=== PATIENT | female | born 1990 | race Caucasian/White ===

== ENCOUNTER 2017-08-04 13:00 | Emergency (ER) | payer MEDICAID ==
[~2017-08-04] VITALS: Ht 177.8 cm; Wt 62.6 kg
[2017-08-04] MEDS ORDERED: LIDOCAINE-MPF 1%, 5ML INFIL ONE (13:30)
[2017-08-04 14:08] VITALS: BP 125/86
== END 2017-08-04 15:13 | disposition home or self-care (01) ==
LOC: ED 13:57
DX: L02.414 Cutaneous abscess of left upper limb (principal); F11.10 Opioid abuse, uncomplicated
CPT/HCPCS: 10060; 99283

== ENCOUNTER 2017-08-26 12:36 | Emergency (ER) | payer SELFPAY ==
[~2017-08-26] VITALS: Ht 177.8 cm; Wt 60.6 kg
[2017-08-26] MEDS ORDERED: CLINDAMYCIN PMX 600MG/50ML 50 ML IV ONE (13:30)
[2017-08-26] MEDS ORDERED: LIDOCAINE-MPF 1%, 5ML INFIL ONE (13:30)
[2017-08-26] MEDS ORDERED: SODIUM CHLORIDE FLUSH 10ML SYR IVF ONE (13:30)
[2017-08-26] MEDS ORDERED: SODIUM CHLORIDE 0.9% 1,000ML IVBOLUS ONE (13:30)
[2017-08-26 14:38] LABS: BASOPHILS # (AUTO) 0.02 x10^3/uL (0-0.1); BASOPHILS % (AUTO) 0 % (0-1); EOSINOPHILS % (AUTO) 0 % (1-7); LYMPHOCYTES # (AUTO) 1.85 x10^3/uL (1-3.4); LYMPHOCYTES % (AUTO) 20 % (22-44); MD NO; MEAN CORPUSCULAR HEMOGLOBIN 29.7 pg (27.0-34.8); MEAN CORPUSCULAR HGB CONC 33.6 g/dL (32.4-35.8); MEAN CORPUSCULAR VOLUME 88.4 fL (80-100); MEAN PLATELET VOLUME 7.1 fL (7.4-10.4); MONOCYTES # (AUTO) 0.47 x10^3/uL (0.2-0.8); MONOCYTES % (AUTO) 5 % (2-9); NEUTROPHILS # (AUTO) 6.96 x10^3/uL (1.8-6.8); NEUTROPHILS % (AUTO) 75 % (42-75); PLATELET COUNT 342 x10^3/uL (130-400); RED BLOOD COUNT 4.32 x10^6/uL (3.82-5.3); RED CELL DISTRIBUTION WIDTH 12.9 % (9.6-15.2)
[2017-08-26 14:49] LABS: ALANINE AMINOTRANSFERASE 20 U/L (12-78); ALBUMIN 3.2 g/dL (3.4-5.0); ANION GAP 7 mmol/L (5-15); CALCIUM 9.1 mg/dL (8.5-10.1); CHLORIDE 104 mmol/L (98-107); CREATININE 0.73 mg/dL (0.55-1.02)
[2017-08-26 14:52] LABS: ALKALINE PHOSPHATASE 97 U/L (45-117); BILIRUBIN,TOTAL 0.4 mg/dL (0.2-1.0); TOTAL PROTEIN 7.9 g/dL (6.4-8.2)
[2017-08-26] MEDS ORDERED: CLINDAMYCIN 150 MG CAPSULE PO ONE (15:30)
[2017-08-26] MEDS ORDERED: CLINDAMYCIN 150 MG CAPSULE ONE (15:30)
[2017-08-26 15:32] VITALS: BP 93/55
== END 2017-08-26 15:46 | disposition home or self-care (01) ==
LOC: ED 14:52
DX: L02.11 Cutaneous abscess of neck (principal); L02.414 Cutaneous abscess of left upper limb; L02.413 Cutaneous abscess of right upper limb; L03.113 Cellulitis of right upper limb; L03.114 Cellulitis of left upper limb; Z90.49 Acquired absence of other specified parts of digestive tract
CPT/HCPCS: 10061; 36415; 80053; 83605; 85025; 87040; 99284

== ENCOUNTER 2017-09-12 10:16 | Emergency (ER) | payer OTHER ==
[~2017-09-12] VITALS: Ht 177.8 cm; Wt 60.0 kg
[2017-09-12 10:26] VITALS: BP 115/71
[2017-09-12] MEDS ORDERED: LIDOCAINE 2%, 20ML SQ ONE (10:30)
[2017-09-12] MEDS ORDERED: SODIUM CHLORIDE FLUSH 10ML SYR IVF ONE (10:30)
[2017-09-12] MEDS ORDERED: SODIUM CHLORIDE 0.9% 1,000ML IVBOLUS ONE (10:30)
[2017-09-12 11:22] LABS: BASOPHILS # (AUTO) 0.03 x10^3/uL (0-0.1); BASOPHILS % (AUTO) 0 % (0-1); EOSINOPHILS # (AUTO) 0.01 x10^3/uL (0-0.4); EOSINOPHILS % (AUTO) 0 % (1-7); LYMPHOCYTES # (AUTO) 1.51 x10^3/uL (1-3.4); LYMPHOCYTES % (AUTO) 10 % (22-44); MD NO; MEAN CORPUSCULAR HEMOGLOBIN 30.2 pg (27.0-34.8); MEAN CORPUSCULAR HGB CONC 33.6 g/dL (32.4-35.8); MEAN CORPUSCULAR VOLUME 89.8 fL (80-100); MEAN PLATELET VOLUME 8.1 fL (7.4-10.4); MONOCYTES # (AUTO) 0.71 x10^3/uL (0.2-0.8); MONOCYTES % (AUTO) 5 % (2-9); NEUTROPHILS # (AUTO) 13.11 x10^3/uL (1.8-6.8); NEUTROPHILS % (AUTO) 85 % (42-75); PLATELET COUNT 286 x10^3/uL (130-400); RED BLOOD COUNT 4.89 x10^6/uL (3.82-5.3)
[2017-09-12] MEDS ORDERED: LIDOCAINE-MPF 2% ,5ML ONE (11:28)
[2017-09-12] MEDS ORDERED: KETOROLAC 30 MG/1 ML IVPush ONE (11:30)
[2017-09-12 11:32] LABS: ALBUMIN 3.5 g/dL (3.4-5.0); ANION GAP 4 mmol/L (5-15); CALCIUM 9.1 mg/dL (8.5-10.1); CHLORIDE 104 mmol/L (98-107); CREATININE 0.91 mg/dL (0.55-1.02)
[2017-09-12] MEDS ORDERED: KETOROLAC 30 MG/1 ML ONE (11:32)
== END 2017-09-12 12:16 | disposition home or self-care (01) ==
LOC: ED 11:54
DX: R55 Syncope and collapse (principal); L02.512 Cutaneous abscess of left hand; F11.129 Opioid abuse with intoxication, unspecified; F17.210 Nicotine dependence, cigarettes, uncomplicated; Z90.49 Acquired absence of other specified parts of digestive tract
CPT/HCPCS: 36415; 80048; 80307; 82040; 84703; 85025; 93005; 96361; 96374; 99285; J1885; J7030

== ENCOUNTER 2018-06-02 21:50 | Emergency (ER) | payer SELFPAY ==
[~2018-06-02] VITALS: Ht 177.8 cm; Wt 62.5 kg
[2018-06-02 21:54] VITALS: BP 138/93
[2018-06-02] MEDS ORDERED: DIPH,PERTUSS(ACELL),TET VAC/PF 0.5 ML IM-VACC ONE ×2 (22:30→22:55)
[2018-06-02] MEDS ORDERED: LIDOCAINE 1%-EPI 1:100K, 30ML SQ ONE (22:30)
[2018-06-02] MEDS ORDERED: LIDOCAINE 1%-EPI 1:100K, 30ML ONE (22:55)
[2018-06-02 23:01] LABS: BASOPHILS # (AUTO) 0.03 x10^3/uL (0-0.1); BASOPHILS % (AUTO) 0 % (0-1); EOSINOPHILS % (AUTO) 0 % (1-7); LYMPHOCYTES # (AUTO) 1.82 x10^3/uL (1-3.4); LYMPHOCYTES % (AUTO) 18 % (22-44); MD NO; MEAN CORPUSCULAR HGB CONC 34.3 g/dL (32.4-35.8); MEAN CORPUSCULAR VOLUME 87.5 fL (80-100); MEAN PLATELET VOLUME 7.6 fL (7.4-10.4); MONOCYTES % (AUTO) 6 % (2-9); NEUTROPHILS # (AUTO) 7.51 x10^3/uL (1.8-6.8); NEUTROPHILS % (AUTO) 76 % (42-75); PLATELET COUNT 238 x10^3/uL (130-400); RED BLOOD COUNT 4.75 x10^6/uL (3.82-5.3); RED CELL DISTRIBUTION WIDTH 13.7 % (9.6-15.2)
[2018-06-02 23:40] LABS: ALBUMIN 3.8 g/dL (3.4-5.0); ANION GAP 9 mmol/L (5-15); CALCIUM 8.8 mg/dL (8.5-10.1); CHLORIDE 103 mmol/L (98-107)
[2018-06-02 23:47] LABS: ALANINE AMINOTRANSFERASE 20 U/L (12-78); ALKALINE PHOSPHATASE 138 U/L (45-117); BILIRUBIN,TOTAL 0.8 mg/dL (0.2-1.0); CREATININE 0.87 mg/dL (0.55-1.02); TOTAL PROTEIN 8.6 g/dL (6.4-8.2)
== END 2018-06-03 00:52 | disposition home or self-care (01) ==
LOC: ED 23:23
DX: L03.115 Cellulitis of right lower limb (principal); L02.415 Cutaneous abscess of right lower limb; F17.210 Nicotine dependence, cigarettes, uncomplicated
CPT/HCPCS: 10060; 36415; 73630; 80053; 85025; 85651; 86140; 90471; 90715; 93005; 99284; J3490

== ENCOUNTER 2018-09-01 02:16 | Emergency (ER) | payer SELFPAY ==
[~2018-09-01] VITALS: Ht 177.8 cm; Wt 60.0 kg
[2018-09-01] MEDS ORDERED: LIDOCAINE-MPF 1%, 5ML ONE (02:28)
[2018-09-01] MEDS ORDERED: CLINDAMYCIN PMX 600MG/50ML 50 ML IV ONE (02:30)
[2018-09-01] MEDS ORDERED: PROPOFOL 10 MG/ML, 20ML IVPush ONE (02:30)
[2018-09-01] MEDS ORDERED: KETAMINE 50 MG/ML, 10ML ONE (02:44)
[2018-09-01] MEDS ORDERED: CLINDAMYCIN 150 MG/ML, 6ML ONE (02:46)
--- NOTE | 2018-09-01 02:49 | NUR ---
CONSENT OBTAINED AND SIGNED FOR PROCEDURAL SEDATION FOR I&D OF ABSCESS TO RIGHT THIGH.
[2018-09-01] MEDS ORDERED: KETAMINE 100 MG/ML, 5ML IM ONE (03:00)
[2018-09-01] MEDS ORDERED: CLINDAMYCIN 150 MG/ML, 6ML IM ONE (03:00)
--- NOTE | 2018-09-01 03:55 | NUR ---
PT CONT TO RECOVER FROM SEDATION, PERIODS OF APNEA, ERMD MICHEL AWARE. CONT TO MONITOR PT CLOSELY.
--- NOTE | 2018-09-01 04:19 | NUR ---
PT IMPROVING DURING RECOVERY, MAINTAIN O2 SATS AND HR IMPROVING TO 105. PT STILL DROWSY BUT DOES RESPOND TO VERBAL STIMULI. VSS
--- NOTE | 2018-09-01 05:00 | NUR ---
PT AWAKE, SITTING UP AND TALKING. PT PROVIDED WATER REQUESTED. MONITOR PT FOR ADDITIONAL 30 MIN PRIOR TO DC.
--- NOTE | 2018-09-01 05:09 | NUR ---
PT OFFERED ADMISSION BY ERMD, PT REFUSING ADMISSION AT THIS TIME.
--- NOTE | 2018-09-01 05:53 | NUR ---
PT C/O BLURRED VISION AND NOT BEING ABLE TO SEE CLEARLY. PT PROVIDED APPLE JUICE AND WARM BLANKET AT THIS TIME. PT WILL BE DISCHARGED WHEN SHE IS APPROPRIATE.
--- NOTE | 2018-09-01 06:49 | NUR ---
Report from Laurie DURAN. Pt resting in bed, drowsy, awakens to this RN entering room. Pt denies needs.
--- NOTE | 2018-09-01 07:40 | NUR ---
Pt continues resting in bed, NADN, remains drowsy, will dc when able.
--- NOTE | 2018-09-01 08:42 | NUR ---
Pt continues resting in bed, NADN, remains drowsy, will dc when able.
[2018-09-01 09:15] VITALS: BP 113/67
== END 2018-09-01 09:17 | disposition home or self-care (01) ==
LOC: ED 03:40
DX: L02.415 Cutaneous abscess of right lower limb (principal); F15.20 Other stimulant dependence, uncomplicated; Z72.9 Problem related to lifestyle, unspecified; Z86.19 Personal history of other infectious and parasitic diseases
CPT/HCPCS: 10060; 96372; 99152; 99285; S0077

== ENCOUNTER 2018-09-03 13:55 | Emergency (ER) | payer SELFPAY ==
[~2018-09-03] VITALS: Ht 177.8 cm; Wt 63.5 kg
--- NOTE | 2018-09-03 14:15 | NUR ---
WOUND RIGHT THIGH
[2018-09-03] MEDS ORDERED: ONDANSETRON ODT 4 MG ONE (14:18)
[2018-09-03] MEDS ORDERED: HYDROmorphone 1 MG/ML, 1ML ONE (14:19)
--- NOTE | 2018-09-03 14:25 | NUR ---
WOUND RIGHT THIGH ABOUT THE SIZE OF A QUARTER. PT STATES IT IS FROM POPPING HEROIN AT THE SITE. ERYTHEMA AROUND THE WOUND. MEDICATED FOR PAIN PER ORDERS
[2018-09-03] MEDS ORDERED: HYDROmorphone 1 MG/ML, 1ML IM ONE (14:30)
[2018-09-03] MEDS ORDERED: ONDANSETRON ODT 4 MG PO ONE (14:30)
[2018-09-03 14:58] VITALS: BP 109/71
--- NOTE | 2018-09-03 14:58 | NUR ---
WOUND DEBRIDED AND PACKED BY PA. VS UPDATED
== END 2018-09-03 15:05 | disposition home or self-care (01) ==
LOC: ED 14:59
DX: Z48.01 Encounter for change or removal of surgical wound dressing (principal); Z90.49 Acquired absence of other specified parts of digestive tract
CPT/HCPCS: 96372; 99283; J1170; Q0162

== ENCOUNTER 2018-09-07 19:37 | Emergency (ER) | payer SELFPAY ==
[~2018-09-07] VITALS: Ht 177.8 cm; Wt 62.1 kg
[2018-09-07 19:52] VITALS: BP 110/76
--- NOTE | 2018-09-07 21:05 | NUR ---
Patient/Caregiver given discharge instructions and they have confirmed that they understand the instructions. Patient ambulatory with steady gait.
== END 2018-09-07 21:06 | disposition home or self-care (01) ==
LOC: ED 20:50
DX: L02.415 Cutaneous abscess of right lower limb (principal)
CPT/HCPCS: 99283

== ENCOUNTER 2018-11-14 17:33 | Emergency (ER) | payer SELFPAY ==
[~2018-11-14] VITALS: Ht 177.8 cm; Wt 55.0 kg
[2018-11-14 17:42] VITALS: BP 127/80
--- NOTE | 2018-11-14 17:53 | NUR ---
pt to room, changed into gown, upright on gurney awake, cooperative but restless on arrival, responds approp to staff, NAD while ambulating freely in room, comfort measures provided, call light within reach.
--- NOTE | 2018-11-14 18:51 | NUR ---
report given to Miguel DURAN
--- NOTE | 2018-11-14 18:58 | NUR ---
BS REPORT OF PT FROM ROGER MOSES AND ASSUMING CARE OF PT AT THIS TIME. PT ASLEEP IN [facility] AT THIS TIME.
[2018-11-14] MEDS ORDERED: LIDOCAINE 1%-EPI 1:100K, 20ML SQ ONE (19:00)
[2018-11-14] MEDS ORDERED: HYDROcodone/APAP 5/325 TABLET PO ONE (19:00)
[2018-11-14] MEDS ORDERED: HYDROcodone/APAP 5/325 TABLET ONE (19:00)
--- NOTE | 2018-11-14 19:02 | NUR ---
YELLOW SHEET SENT TO PHARMACY FOR LIDO W/EPI.
[2018-11-14] MEDS ORDERED: LIDOCAINE 2%-EPI 1:100K, 20ML SQ ONE (19:30)
--- NOTE | 2018-11-14 19:50 | NUR ---
PT REFUSING ANTIBIOTICS AND I&D TREATMENT FROM PROVIDER. PT SAYS SHE JUST WANTS TO LEAVE. PT REFUSING TO SIGN AMA PAPERWORK. PT SLAMMING DOOR AND THROWING A TANTRUM IN ROOM. SECURITY CALLED TO ASSIST PT TO LOBBY FOR D/C HOME. PT WAS MEDICATED FOR PAIN, BUT STATES THAT SHE DOES NOT HAVE A VEHICLE ON SITE AND WILL BE WALKING HOME.
== END 2018-11-14 20:06 | disposition home or self-care (01) ==
LOC: ED 20:00
DX: L03.116 Cellulitis of left lower limb (principal); L02.416 Cutaneous abscess of left lower limb; F17.200 Nicotine dependence, unspecified, uncomplicated; Z86.19 Personal history of other infectious and parasitic diseases; Z90.49 Acquired absence of other specified parts of digestive tract
CPT/HCPCS: 99284

== ENCOUNTER 2019-06-27 18:33 | Emergency (ER) | payer SELFPAY ==
[~2019-06-27] VITALS: Ht 172.7 cm; Wt 62.3 kg
[2019-06-27 18:44] VITALS: BP 113/70
--- NOTE | 2019-06-27 19:25 | NUR ---
NO ANSWER X1
--- NOTE | 2019-06-27 19:40 | NUR ---
NILX2
--- NOTE | 2019-06-27 20:07 | NUR ---
NO ANSWER X3
== END 2019-06-27 20:11 | disposition left against medical advice (07) ==
LOC: ED 20:05
DX: M25.512 Pain in left shoulder (principal); Z53.21 Procedure and treatment not carried out due to patient leaving prior to being seen by health care provider
CPT/HCPCS: 93005

== ENCOUNTER 2020-07-22 18:05 | Emergency (ER) | payer SELFPAY ==
[~2020-07-22] VITALS: Ht 167.6 cm; Wt 63.3 kg
--- NOTE | 2020-07-22 18:40 | NUR ---
cc of pain on both buttocks from possible abscess. redness and swelling noted to each buttock with firmness. 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 pt also has healing abscess on right moeller and multiple track pat on both legs.
[2020-07-22] MEDS ORDERED: LIDOCAINE-MPF 1%, 5ML ONE (18:48)
[2020-07-22] MEDS ORDERED: LIDOCAINE-MPF 1%, 5ML INFIL ONE (19:00)
[2020-07-22 19:48] VITALS: BP 126/61
== END 2020-07-22 19:49 | disposition home or self-care (01) ==
LOC: ED 19:37
DX: L02.31 Cutaneous abscess of buttock (principal); F17.200 Nicotine dependence, unspecified, uncomplicated; Z90.49 Acquired absence of other specified parts of digestive tract; Z90.89 Acquired absence of other organs
CPT/HCPCS: 10061; 99284

== ENCOUNTER 2020-07-25 11:45 | Emergency (ER) | payer SELFPAY ==
[~2020-07-25] VITALS: Ht 177.8 cm; Wt 63.1 kg
[2020-07-25 11:52] VITALS: BP 124/74
== END 2020-07-25 12:39 | disposition home or self-care (01) ==
LOC: ED 12:32
DX: L02.415 Cutaneous abscess of right lower limb (principal)
CPT/HCPCS: 99282

== ENCOUNTER 2020-07-27 12:24 | Emergency (ER) | payer SELFPAY ==
[~2020-07-27] VITALS: Ht 177.8 cm; Wt 59.3 kg
[2020-07-27 12:31] VITALS: BP 106/68
--- NOTE | 2020-07-27 13:10 | NUR ---
Pt here for packing removal from recent I/D
--- NOTE | 2020-07-27 13:24 | NUR ---
TASK RN: Patient/Caregiver given discharge instructions and they have confirmed that they understand the instructions. Patient ambulatory with steady gait. Pt verbalizes need to rtn to ED for wound recheck in 2 days.
== END 2020-07-27 13:33 | disposition home or self-care (01) ==
LOC: ED 13:25
DX: L02.31 Cutaneous abscess of buttock (principal); F17.200 Nicotine dependence, unspecified, uncomplicated; Z90.89 Acquired absence of other organs; Z90.49 Acquired absence of other specified parts of digestive tract
CPT/HCPCS: 99281

== ENCOUNTER 2021-01-15 22:34 | Emergency (ER) | payer MEDICAID ==
[~2021-01-15] VITALS: Ht 175.3 cm; Wt 63.1 kg
--- NOTE | 2021-01-15 23:34 | NUR ---
TO ROOM FROM LOBBY. NAD.
[2021-01-15 23:56] VITALS: BP 124/76
[2021-01-15] MEDS ORDERED: LIDOCAINE-MPF 1%, 5ML ONE (23:59)
[2021-01-16] MEDS ORDERED: LIDOCAINE 1%, 10ML INFIL ONE
== END 2021-01-16 01:10 | disposition home or self-care (01) ==
LOC: ED 01-16
DX: L02.11 Cutaneous abscess of neck (principal); L03.221 Cellulitis of neck; Z86.19 Personal history of other infectious and parasitic diseases
CPT/HCPCS: 10060

== ENCOUNTER 2021-01-18 17:49 | Emergency (ER) | payer MEDICAID ==
[~2021-01-18] VITALS: Ht 175.3 cm; Wt 62.0 kg
[2021-01-18 18:10] VITALS: BP 115/69
--- NOTE | 2021-01-18 18:55 | NUR ---
REPORT FROM CHUCK DURAN
[2021-01-18] MEDS ORDERED: LIDOCAINE-MPF 1%, 5ML ONE (18:58)
[2021-01-18] MEDS ORDERED: LIDOCAINE-MPF 1%, 5ML INFIL ONE (19:00)
--- NOTE | 2021-01-18 19:13 | NUR ---
ABSCESS ON LEFT NECK IRRIGATED UNDER PRESSURE WITH NS. PT TOLERATED WELL.
--- NOTE | 2021-01-18 19:46 | NUR ---
Patient given discharge instructions and they have confirmed that they understand the instructions. Patient ambulatory with steady gait. NAD, all questions answered appropriately, denies additional needs at this time. No personal belongings left in room after discharge.
== END 2021-01-18 19:48 | disposition home or self-care (01) ==
LOC: ED 19:40
DX: L02.11 Cutaneous abscess of neck (principal); Z90.49 Acquired absence of other specified parts of digestive tract; Z90.89 Acquired absence of other organs; F17.210 Nicotine dependence, cigarettes, uncomplicated
CPT/HCPCS: 10060; 99283; 99406

== ENCOUNTER 2021-02-02 17:12 | Emergency (ER) | payer MEDICAID ==
[~2021-02-02] VITALS: Ht 175.3 cm; Wt 60.9 kg
[2021-02-02] MEDS ORDERED: SODIUM CHLORIDE 0.9% 1,000ML IVBOLUS ONE (18:00)
[2021-02-02] MEDS ORDERED: PLEASE ENTER ALLERGIES MC SCH (18:00)
[2021-02-02] MEDS ORDERED: LIDOCAINE 2%-EPI 1:100K, 20ML INFIL ONE (18:00)
[2021-02-02] MEDS ORDERED: CLINDAMYCIN PMX 600MG/50ML 50 ML IV ONE (18:00)
[2021-02-02] MEDS ORDERED: LIDOCAINE 1%-EPI 1:100K, 20ML ONE (18:05)
[2021-02-02] MEDS ORDERED: CLINDAMYCIN PMX 600MG/50ML 50 ML ONE (18:05)
[2021-02-02 18:29] LABS: ALANINE AMINOTRANSFERASE 14 U/L (12-78); ALBUMIN 2.7 g/dL (3.4-5.0); ANION GAP 6 mmol/L (5-15); BASOPHILS % (AUTO) 0 % (0-1); CALCIUM 8.6 mg/dL (8.5-10.1); CHLORIDE 103 mmol/L (98-107); CREATININE 0.59 mg/dL (0.55-1.02); EOSINOPHILS % (AUTO) 0 % (1-7); LYMPHOCYTES % (AUTO) 19 % (22-44); MEAN CORPUSCULAR HEMOGLOBIN 27.8 pg (27.0-34.8); MEAN CORPUSCULAR HGB CONC 33.6 g/dL (32.4-35.8); MEAN PLATELET VOLUME 7.6 fL (7.4-10.4); MONOCYTES % (AUTO) 7 % (2-9); NEUTROPHILS % (AUTO) 74 % (42-75); PLATELET COUNT 271 x10^3/uL (130-400); RED BLOOD COUNT 4.18 x10^6/uL (3.82-5.3); RED CELL DISTRIBUTION WIDTH 14.5 % (9.6-15.2)
[2021-02-02] MEDS ORDERED: KETAMINE 10 MG/ML, 20ML IV ONE (18:30)
[2021-02-02 18:32] LABS: ALKALINE PHOSPHATASE 117 U/L (45-117); BILIRUBIN,TOTAL 0.4 mg/dL (0.2-1.0); TOTAL PROTEIN 7.6 g/dL (6.4-8.2)
--- NOTE | 2021-02-02 18:53 | NUR ---
PT RESTING ON GURNEY. NADN. HUMPHREYS.
[2021-02-02] MEDS ORDERED: KETAMINE 10 MG/ML, 20ML ONE (19:03)
[2021-02-02 19:38] VITALS: BP 103/66
== END 2021-02-02 20:05 | disposition home or self-care (01) ==
LOC: ED 17:42
DX: L03.116 Cellulitis of left lower limb (principal); L02.416 Cutaneous abscess of left lower limb
CPT/HCPCS: 10060; 36415; 80053; 83605; 85025; 87040; 96361; 96365; 96375; 99284; J7030